=== PATIENT | female | born 1975 | race Caucasian/White ===

== ENCOUNTER 2017-01-17 12:48 | Emergency (ER) | payer OTHER ==
[~2017-01-17] VITALS: Ht 154.9 cm; Wt 188.2 kg
[2017-01-17] MEDS ORDERED: ASPIR 8181 M1 PO (13:05)
[2017-01-17] MEDS ORDERED: XANAX 0.5 MG0.5 MG PO (13:05)
[2017-01-17] MEDS ORDERED: PRINIVIL20 MG PO (13:05)
[2017-01-17] MEDS ORDERED: BUMEX2 MG PO (13:07)
[2017-01-17 14:39] LABS: ABSOLUTE NEUTROPHILS 5.9 thou/uL (1.4-8.2); BASOPHILS 0.9 % (0.0-2.0); EOSINOPHILS 1.2 % (0.0-3.0); HEMATOCRIT 25.6 % (37.0-47.0); HEMOGLOBIN 8.3 gm/dL (12.0-15.0); LYMPHOCYTES 25.1 % (24.0-44.0); MCH 26.8 pg (26.0-34.0); MCHC 32.4 g/dL (28.0-37.0); MCV 82.7 fL (80.0-100.0); MONOCYTES 7.9 % (1.0-8.0); PLATELET COUNT 198 thou/uL (150-400); POLYS 64.9 % (36.0-66.0); RBC 3.09 mil/uL (4.20-5.00); RDW 15.6 % (10.5-14.5); WBC 9.1 thou/uL (4.0-11.0)
[2017-01-17 14:40] LABS: MANUAL DIFF NO
[2017-01-17 14:49] LABS: CALCIUM 9.4 mg/dL (8.5-10.1); CREATININE 1.3 mg/dL (0.6-1.0)
[2017-01-17] MEDS ORDERED: NORCO 5-325 TA1 EACH PO (14:58)
[2017-01-17 15:05] VITALS: BP 173/80
[2017-01-17] MEDS ORDERED: GABAPENTIN 100100 MG PO (15:18)
== END 2017-01-17 16:32 | disposition home or self-care (01) ==
LOC: ER 12:48
PROVIDERS: Emergency Medicine
DX: G62.9 Polyneuropathy, unspecified (principal); D64.89 Other specified anemias; I89.0 Lymphedema, not elsewhere classified; E66.01 Morbid (severe) obesity due to excess calories; I10 Essential (primary) hypertension; Z88.5 Allergy status to narcotic agent; Z88.0 Allergy status to penicillin